=== PATIENT | female | born 1960 | race Caucasian/White ===

== ENCOUNTER 2016-08-16 06:18 | Emergency (ER) | payer OTHER | END 2016-08-16 12:04 | disposition short-term general hospital (02) | LOC: ER 06:18 | PROC: 0SWBXJZ Revision of Synthetic Substitute in Left Hip Joint, External Approach (ICD-10-PCS; principal; 2016-08-16) | DX: T84.021A Dislocation of internal left hip prosthesis, initial encounter (principal); X58.XXXA Exposure to other specified factors, initial encounter; Z96.642 Presence of left artificial hip joint | CPT/HCPCS: 72170; 96374; 96375; 96376; 99153; 99284; 99152 ==

== ENCOUNTER 2017-05-20 18:36 | Emergency (ER) | payer OTHER ==
[2017-05-20] MEDS ORDERED: NORMAL SALINE 1000 ML 1,000 ML IV ONE ×2 (20:11→21:39)
--- NOTE | 2017-05-20 20:12 | ER Document Report ---
ED Medical Screen (RME) - General Chief Complaint: Nausea/Vomiting, low BP Stated Complaint: BLOOD PRESSURE ISSUES Time Seen by Provider: 05/20/17 20:10 Mode of Arrival: Ambulatory Information source: Patient Notes: Patient presents complaining of upper respiratory symptoms for the past week. Patient states her symptoms worsened over the past 4 days. Patient states that she recently saw her doctor was diagnosed with pneumonia and placed on doxycycline. Patient states that she has felt dizzy at home that her blood pressure has been running low. She does state that she will cough and this will cause her to gag and then she will vomit. hx: Lap jerad I have greeted and performed a rapid initial assessment of this patient. A comprehensive ED assessment and evaluation of the patient, analysis of test results and completion of the medical decision making process will be conducted by additional ED providers. TRAVEL OUTSIDE OF THE [place] IN LAST 30 DAYS: No - Related Data Allergies/Adverse Reactions: No Known Allergies Allergy (Unverified 05/20/17 18:41) Past Medical History - Social History Chew tobacco use (# tins/day): No Frequency of alcohol use: Occasional Drug Abuse: None - Past Medical History Cardiac Medical History: Reports: Hx Hypertension - controlled without meds Renal/ Medical History: Denies: Hx Peritoneal Dialysis Past Surgical History: Reports: Hx Appendectomy, Hx Section, Hx Orthopedic Surgery - hip replacement, Hx Tonsillectomy Physical Exam - Vital signs Vitals: Temp Pulse Resp BP Pulse Ox 98.2 F 68 19 102/68 97 05/20/17 18:45 05/20/17 18:45 05/20/17 18:45 05/20/17 18:45 05/20/17 18:45 - Respiratory Respiratory status: No respiratory distress Breath sounds: Nonproductive cough, Rhonchi Course - Vital Signs Vital signs: Temp Pulse Resp BP Pulse Ox 98.2 F 68 19 102/68 97 05/20/17 18:45 05/20/17 18:45 05/20/17 18:45 05/20/17 18:45 05/20/17 18:45
[2017-05-20 20:59] LABS: ABSOLUTE LYMPHOCYTES (AUTO) 1.4 10^3/uL (0.5-4.7); ABSOLUTE MONOCYTES (AUTO) 0.4 10^3/uL (0.1-1.4); BASOPHILS % (AUTO) 0.4 % (0-2); EOSINOPHILS % (AUTO) 0.5 % (0-6); HEMATOCRIT 52.2 % (36.0-47.0); HEMOGLOBIN 18.1 g/dL (12.0-15.5); LYMPHOCYTES % (AUTO) 50.1 % (13-45); MEAN CORPUSCULAR HEMOGLOBIN 33.4 pg (27.0-33.4); MEAN CORPUSCULAR HGB CONC 34.7 g/dL (32.0-36.0); MEAN CORPUSCULAR VOLUME 96 fl (80-97); MONOCYTES % (AUTO) 13.1 % (3-13); PLATELET COUNT 152 10^3/uL (150-450); RED BLOOD COUNT 5.41 10^6/uL (3.72-5.28); RED CELL DISTRIBUTION WIDTH 14.6 % (11.5-14.0); SEGMENTED NEUTROPHILS % (AUTO) 35.9 % (42-78); TOTAL CELLS COUNTED % (AUTO) 100 %; WHITE BLOOD COUNT 2.7 10^3/uL (4.0-10.5)
[2017-05-20 21:04] LABS: APPEARANCE,URINE CLOUDY; BILIRUBIN,URINE NEGATIVE (NEGATIVE); COLOR,URINE DARK YELLOW; GLUCOSE, URINE NEGATIVE (NEGATIVE); KETONES,URINE 20 mg/dL (NEGATIVE); LEUKOCYTE ESTERASE,URINE TRACE (NEGATIVE); NITRITE,URINE NEGATIVE (NEGATIVE); PROTEIN,URINE 30 mg/dL (NEGATIVE); URINE SPECIFIC GRAVITY 1.024
--- NOTE | 2017-05-20 21:07 | RADIOLOGY REPORT (SQ) ---
EXAM DESCRIPTION: CHEST PA/LAT COMPLETED DATE/TIME: 05/20/2017 8:51 pm REASON FOR STUDY: cough, hx pneumonia COMPARISON: 2011. TECHNIQUE: Frontal and lateral radiographic views of the chest acquired. NUMBER OF VIEWS: Two view. LIMITATIONS: None. FINDINGS: LUNGS AND PLEURA: No opacities, masses or pneumothorax. No pleural effusion. MEDIASTINUM AND HILAR STRUCTURES: No masses or contour abnormalities. HEART AND VASCULAR STRUCTURES: Heart normal size. No evidence for failure. BONES: No acute findings. HARDWARE: None in the chest. OTHER: No other significant finding. IMPRESSION: NO SIGNIFICANT RADIOGRAPHIC FINDING IN THE CHEST. TECHNICAL DOCUMENTATION: JOB ID: [id number] [employer]- All Rights Reserved
[2017-05-20 21:10] LABS: ALANINE AMINOTRANSFERASE 25 U/L (9-52); ALBUMIN 4.7 g/dL (3.5-5.0); ALKALINE PHOSPHATASE 70 U/L (38-126); ANION GAP 13 (5-19); ASPARTATE AMINO TRANSFERASE 44 U/L (14-36); BILIRUBIN,DIRECT 0.4 mg/dL (0.0-0.4); BILIRUBIN,TOTAL 0.4 mg/dL (0.2-1.3); BLOOD UREA NITROGEN 11 mg/dL (7-20); CALCIUM 9.8 mg/dL (8.4-10.2); CARBON DIOXIDE 28 mmol/L (22-30); CHLORIDE 102 mmol/L (98-107); GLUCOSE 83 mg/dL (75-110); POTASSIUM 3.3 mmol/L (3.6-5.0); SODIUM 142.7 mmol/L (137-145); TOTAL PROTEIN 7.5 g/dL (6.3-8.2)
[2017-05-20] MEDS ORDERED: ACETAMINOPHEN WITH CODEINE #3 TABLET PO ONE (21:38)
[2017-05-20] MEDS ORDERED: IPRATROPIUM/ALBUTEROL 0.5-2.5 MG/3 ML AMPUL NEB ONE (21:38)
[2017-05-20] MEDS ORDERED: METHYLPREDNISOLONE INJ 125 MG/2 ML SDV IV ONE (21:38)
--- NOTE | 2017-05-20 21:41 | ER Document Report ---
ED General - General Chief Complaint: Nausea/Vomiting, low BP Stated Complaint: BLOOD PRESSURE ISSUES Time Seen by Provider: 05/20/17 20:10 Mode of Arrival: Ambulatory Information source: Patient, Relative TRAVEL OUTSIDE OF THE [place] IN LAST 30 DAYS: No - HPI Notes: 56-year-old lady with no significant past medical history who has chronic tobacco use for multiple years presented today for evaluation of cough, nausea and vomiting, dizziness and dehydration. Patient reported that she was recently diagnosed with pneumonia by her primary care physician 3 days ago. Patient was tested for flu and tested negative. Patient was recently started on inhaler as well as doxycycline. Patient is actively taking Mucinex as well. Today patient had multiple episodes of vomiting and noted to have dizziness associated with it. Patient noted to be hypotensive in triage. Patient denies any chest pain, abdominal pain, diarrhea. - Related Data Allergies/Adverse Reactions: No Known Allergies Allergy (Unverified 05/20/17 18:41) Past Medical History - General Information source: Patient - Social History Smoking Status: Current Every Day Smoker Chew tobacco use (# tins/day): No Frequency of alcohol use: Occasional Drug Abuse: None Family History: Reviewed & Not Pertinent Patient has suicidal ideation: No Patient has homicidal ideation: No - Past Medical History Cardiac Medical History: Reports: Hx Hypertension - controlled without meds Renal/ Medical History: Denies: Hx Peritoneal Dialysis Past Surgical History: Reports: Hx Appendectomy, Hx Section, Hx Orthopedic Surgery - hip replacement, Hx Tonsillectomy Review of Systems - Review of Systems Notes: REVIEW OF SYSTEMS: CONSTITUTIONAL: -fevers, -chills EENT: -eye pain, -difficulty swallowing, -nasal congestion CARDIOVASCULAR: -chest pain, -syncope, + dizziness RESPIRATORY: + Cough, -SOB GASTROINTESTINAL: -abdominal pain, + nausea, + vomiting, -diarrhea GENITOURINARY: -dysuria, -hematuria MUSCULOSKELETAL: -back pain, -neck pain SKIN: -rash or skin lesions. HEMATOLOGIC: -easy bruising or bleeding. LYMPHATIC: -swollen, enlarged glands. NEUROLOGICAL: -altered mental status or loss of consciousness, -headache, - neurologic symptoms PSYCHIATRIC: -anxiety, -depression. ALL OTHER SYSTEMS REVIEWED AND NEGATIVE. Physical Exam - Vital signs Vitals: Temp Pulse Resp BP Pulse Ox 98.2 F 68 19 102/68 97 05/20/17 18:45 05/20/17 18:45 05/20/17 18:45 05/20/17 18:45 05/20/17 18:45 - Notes Notes: Reviewed vital signs and nursing note as charted by RN. CONSTITUTIONAL: Alert and oriented and responds appropriately to questions HEAD: Normocephalic; atraumatic EYES: PERRL; Conjunctivae clear, sclerae non-icteric ENT: normal nose; no rhinorrhea; dry mucous membranes; pharynx without lesions noted NECK: Supple without meningismus; non-tender; no cervical lymphadenopathy, no masses CARD: Regular rate and rhythm; no murmurs, no clicks, no rubs, no gallops; symmetric distal pulses RESP: Normal chest excursion without splinting or tachypnea; breath sounds with mild wheezing at the bases, patient has persistent cough ABD/GI: Normal bowel sounds; non-distended; soft, nontender BACK: The back appears normal and is non-tender to palpation EXT: Normal ROM in all joints; non-tender to palpation; no cyanosis, no effusions, no edema SKIN: Normal color for age and race; warm; dry; good turgor; capillary refill < 2 seconds; no acute lesions noted NEURO: .Cranial nerves 3-12 intact. Motor strength 5/5 bilaterally. Sensation intact to touch bilaterally. No pronator drift. Finger to nose intact bilaterally PSYCH: The patient's mood and manner are appropriate. Grooming and personal hygiene are appropriate. Course - Re-evaluation Re-evalutation: 05/20/17 21:44 Patient with recent diagnosis of pneumonia now with persistent cough, nausea and vomiting as well as dizziness and blood pressure problems Patient noted to have borderline hypotension Differential diagnoses includes worsening pneumonia, pleural effusion, dehydration, electrolyte abnormalities, hypertension, sepsis, acute bronchitis We will obtain basic lab work including CBC, BMP, urinalysis Chest x-ray, EKG Will give patient IV fluids We will give patient DuoNeb as well as a dose of steroids Tylenol 3 for cough Reassess patient 05/20/17 23:27 Patient is feeling much better Her coughing significantly improved, no more hypotension Likely etiology of her symptoms is acute bronchitis with possible early pneumonia We will start patient on prednisone and encourage to take doxycycline and albuterol inhaler We will give patient nausea medication for home to improve her appetite Stricter precautions were given, patient was educated to follow-up with her primary care physician for repeat white count test Family agree with disposition planning, discharge home - Vital Signs Vital signs: Temp Pulse Resp BP Pulse Ox 98.2 F 68 19 102/68 97 05/20/17 18:45 05/20/17 18:45 05/20/17 18:45 05/20/17 18:45 05/20/17 18:45 - Laboratory Result Diagrams: 05/20/17 20:22 05/20/17 20:22 Laboratory results interpreted by me: 05/20/17 05/20/17 05/20/17 20:22 20:22 20:22 WBC 2.7 L RBC 5.41 H Hgb 18.1 H Hct 52.2 H RDW 14.6 H Seg Neutrophils % 35.9 L Lymphocytes % 50.1 H Monocytes % 13.1 H Absolute Neutrophils 1.0 L Potassium 3.3 L AST 44 H Urine Protein 30 H Urine Ketones 20 H Urine Blood SMALL H Urine Urobilinogen 4.0 H Ur Leukocyte Esterase TRACE H - Diagnostic Test Radiology reviewed: Image reviewed - Patient has possible right lower lobe infiltrate consistent with acute pneumonia - EKG Interpretation by Me Additional EKG results interpreted by me: 05/20/17 21:47 EKG interpretation 8:47 PM Right 58 Normal sinus rhythm Normal MO interval, QRS narrow, normal QTC T-wave inversions in septal leads, no ST elevations or depressions, no prior EKG available Critical Care Note - Critical Care Note Comments: Critical Care Time: 35 minutes Critical care provider statement: Dehydration Critical care time was exclusive of: Separately billable procedures and treating other patients and teaching time Critical care was time spent personally by me on the following activities: Blood draw for specimens, development of treatment plan with patient or surrogate, evaluation of patient's response to treatment, examination of patient , obtaining history from patient or surrogate, ordering and performing treatments and interventions, ordering and review of laboratory studies, ordering and review of radiographic studies, pulse oximetry, re-evaluation of patient's condition and review of old charts I assumed direction of critical care for this patient from another provider in my specialty: no Discharge - Discharge Clinical Impression: Acute bronchitis, Pneumonia, Leukopenia, Dehydration Condition: Stable Disposition: HOME, SELF-CARE Instructions: Bronchitis ([facility]) Additional Instructions: Please continue to take your steroids as well as albuterol inhaler as prescribed Please continue with doxycycline as well Use Zofran if you have nausea or poor appetite Please follow-up with your primary care physician for repeat of blood work because he noted to have low white count today Prescriptions: Ondansetron [Zofran Odt 4 mg Tablet] 1 - 2 tab PO Q4H PRN #15 tab.rapdis PRN Reason: For Nausea/Vomiting Prednisone [Deltasone 20 mg Tablet] 3 tab PO DAILY 5 Days #15 tab
--- NOTE | 2017-05-20 21:47 | EKG REPORT ---
SEVERITY:- BORDERLINE ECG - SINUS RHYTHM BORDERLINE T ABNORMALITIES, ANTERIOR LEADS : Confirmed by: Lety Gibbs 20-May-2017 21:46:30
[2017-05-21 01:20] VITALS: BP 102/69
== END 2017-05-21 01:20 | disposition home or self-care (01) ==
LOC: ER 18:36
DX: J20.9 Acute bronchitis, unspecified (principal); I10 Essential (primary) hypertension; R05 Cough; R11.2 Nausea with vomiting, unspecified; E86.0 Dehydration; R42 Dizziness and giddiness; F17.200 Nicotine dependence, unspecified, uncomplicated
CPT/HCPCS: 93005; 94640; 99291; 96361; 96374; 36415; 87040; 85025; 80053; 81001; 71046; 93010; J2930; J7030; J7620